=== PATIENT | male | born 1940 | race Caucasian/White ===

== ENCOUNTER 2024-12-11 05:57 | Day surgery (SDC) | payer MEDICARE ==
[2024-12-07 11:58] LABS: BASOPHILS # (AUTO) 0.05 K/uL (0.00-0.20); BASOPHILS % (AUTO) 1.2 % (0.0-5.0); EOSINOPHILS # (AUTO) 0.16 K/uL (0.00-0.70); EOSINOPHILS % (AUTO) 3.8 % (0.0-8.0); HEMATOCRIT 49.3 % (42-54); IMMATURE GRANULOCYTE ABSOLUTE 0.01 K/uL (0-1); LYMPHOCYTES # (AUTO) 0.8 K/uL (1.0-4.8); LYMPHOCYTES % (AUTO) 19.3 % (21.0-51.0); MEAN CORPUSCULAR HEMOGLOBIN 28.6 pg (27.0-33.0); MEAN CORPUSCULAR HGB CONC 31.8 g/dL (32.0-36.0); MONOCYTES # (AUTO) 0.5 K/uL (0.1-1.0); MONOCYTES % (AUTO) 11.9 % (3.0-13.0); NEUTROPHILS # (AUTO) 2.7 K/uL (1.8-7.7); NEUTROPHILS % (AUTO) 63.6 % (40.0-77.0); PLATELET COUNT (AUTO) 136 K/uL (130-400); RED BLOOD CELL COUNT(AUTO) 5.48 MIL/uL (4.50-6.20); RED CELL DISTRIBUTION WIDTH 14.6 % (11.0-15.5); WHITE BLOOD COUNT (AUTO) 4.2 K/uL (4.8-10.8)
--- NOTE | 2024-12-07 12:06 | EKG ---
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
[2024-12-07 12:11] LABS: INR 1.03 (0.85-1.15); PROTHROMBIN TIME 10.9 SEC (9.6-11.6)
[2024-12-07 12:12] LABS: CREATININE 1.3 mg/dL (0.5-1.3); POTASSIUM 5.3 mmol/L (3.5-5.1)
[2024-12-07 12:13] LABS: PARTIAL THROMBOPLASTIN TIME 29.2 SEC (26.3-35.5)
[2024-12-07 12:27] VITALS: BP 153/69; PULSE 46; RESP 18; TEMP 97.3
--- NOTE | 2024-12-10 10:07 | NUR ---
REPORT REPORTED POTASSIUM LEVEL TO DR CONTEH. NO NEW ORDERS GIVEN. DID RECEIVE INSTRUCTIONS TO OBTAIN ECHO. KAREN LEFT A MESSAGE TO FAX OVER AND ALSO TO LET ME KNOW IF H&P DICTATED. WILL WAIT FOR CALL BACK
[~2024-12-11] VITALS: Ht 170.2 cm; Wt 96.3 kg
[2024-12-11] VITALS (9 sets, daily range): BP systolic 126–177; BP diastolic 62–89; PULSE 39–55; RESP 10–17; TEMP 97.4–97.9
[2024-12-11] MEDS: 0.9%NACL 1000ML 1,000 ML IV SCH (06:50)
[2024-12-11] MEDS ORDERED: HEParin-NS 1,000 UNIT/500 ML 500 ML IV ONE (07:28)
[2024-12-11] MEDS ORDERED: LIDOCAINE HCL 1% MDV 50ML VIAL ONE (07:28)
[2024-12-11] MEDS ORDERED: FENTanyl CITRate PF 50 MCG/1 ML 2ML VIAL ONE (07:44)
[2024-12-11] MEDS ORDERED: MIDAZOLAM HCL 1 MG/ML 2ML VIAL ONE (07:44)
[2024-12-11] MEDS ORDERED: BACITRACIN 1 EACH PACKET TP ONE (09:00)
[2024-12-11] MEDS ORDERED: EMPA1TAB19 PO (10:28)
[2024-12-11] MEDS ORDERED: TEST75GE10 TP (10:28)
[2024-12-11] MEDS ORDERED: UMEC1DIS IH (10:28)
[2024-12-11] MEDS ORDERED: SIMV-46 PO (10:28)
[2024-12-11] MEDS ORDERED: PIOG15TA66 PO (10:28)
[2024-12-11] MEDS ORDERED: LOSA50TA64 PO (10:28)
[2024-12-11] MEDS ORDERED: GABA-1405 PO (10:28)
[2024-12-11] MEDS ORDERED: BACL10TA PO (10:28)
[2024-12-11] MEDS ORDERED: POTA10CA95 PO (10:28)
[2024-12-11] MEDS ORDERED: MEMA5TAB16 PO (10:28)
[2024-12-11] MEDS ORDERED: BRIN8DRO2 OU (10:28)
[2024-12-11] MEDS ORDERED: B6/F1CAP PO (10:28)
--- NOTE | 2024-12-11 10:50 | NUR ---
activity/elimination: assisted to standing position without complaining of dizziness. ambulated t o bathroom at slow steady gait. pt voided qs yellow color urine in toilet without difficulty. assisted back to bed at 70 degree angle.
== END 2024-12-11 11:30 | disposition home or self-care (01) ==
LOC: DAH 05:57
PROVIDERS: ATTEND Internal Medicine Cardiovascular Disease
DX: R55 Syncope and collapse (principal); R00.1 Bradycardia, unspecified; I44.0 Atrioventricular block, first degree; I48.3 Typical atrial flutter; I45.89 Other specified conduction disorders; E11.9 Type 2 diabetes mellitus without complications; E78.5 Hyperlipidemia, unspecified; I44.7 Left bundle-branch block, unspecified; I48.91 Unspecified atrial fibrillation; I45.10 Unspecified right bundle-branch block; J44.9 Chronic obstructive pulmonary disease, unspecified; E66.9 Obesity, unspecified; E88.09 Other disorders of plasma-protein metabolism, not elsewhere classified; Z79.01 Long term (current) use of anticoagulants; Z98.49 Cataract extraction status, unspecified eye; Z98.890 Other specified postprocedural states; Z68.32 Body mass index [BMI] 32.0-32.9, adult; Z79.899 Other long term (current) drug therapy
CPT/HCPCS: 80048; 85025; 85610; 85730; 36415; 93005; 93619; 33285; 82948 ×2; A4223 ×3; A4649; C1894 ×2; C1730 ×2; C1764; C1760 ×2; J3010; J7030; J2250; J1644; J3490; A4215; A4222; A4221; A4663; A4216; A4606; 99156; 99157